=== PATIENT | female | born 1955 ===

== ENCOUNTER → 2019-07-27 | Outpatient (CLI) | payer MEDICARE, OTHER | END | disposition home or self-care (01) | LOC: LAB SHORT 10:25 → LAB 10:25 | PROVIDERS: Hospitalist | DX: Z12.4 Encounter for screening for malignant neoplasm of cervix (principal) | CPT/HCPCS: G0145 ==

== ENCOUNTER 2019-09-24 07:30 | Day surgery (SDC) | payer MEDICARE, OTHER ==
[~2019-09-24] VITALS: Ht 172.7 cm; Wt 82.5 kg
[~2019-09-24 07:30] MED LIST: ATEN25 PO; HYDCHL25 PO; PRAV20 PO
== END 2019-09-24 09:48 | disposition home or self-care (01) ==
LOC: ORSCSDS 07:30
PROVIDERS: Surgery
PROC: 0DJD8ZZ Inspection of Lower Intestinal Tract, Via Natural or Artificial Opening Endoscopic (ICD-10-PCS; principal; 2019-09-24 08:45)
DX: Z12.11 Encounter for screening for malignant neoplasm of colon (principal); K62.1 Rectal polyp; E78.5 Hyperlipidemia, unspecified; I10 Essential (primary) hypertension; Z87.891 Personal history of nicotine dependence; Z79.899 Other long term (current) drug therapy
CPT/HCPCS: 88305; J2704; J7120

== ENCOUNTER → 2024-12-23 | Outpatient (CLI) | payer MEDICARE ==
[2024-12-23 20:19] LABS: Very Low Density Lipoprot Chol 32 mg/dL (6-32)
[2024-12-23 20:20] LABS: Anion Gap 11 mmol/L (3-11); Blood Urea Nitrogen 9 mg/dL (8-24); Bun/Creatinine Ratio 12.1 (12.0-20.0); CHOL/HDL RATIO 3.8; CO2, Blood 27 mmol/L (21-32); Calcium, Blood 9.2 mg/dL (8.5-10.1); Chloride, Blood 107 mmol/L (98-108); Cholesterol 165 mg/dL (50-200); Creatinine, Blood 0.75 mg/dL (0.40-1.00); Glomerular Filtration Rate 85 (60-); Glucose, Blood 103 mg/dL (70-99); HDL Cholesterol 43 mg/dL (>39); LDL/HDL RATIO 2.1; Low Density Lipoprotein Chol 90 mg/dL (0-110); Potassium, Blood 4.3 mmol/L (3.5-5.5); Sodium, Blood 141 mmol/L (136-145); Triglycerides 161 mg/dL (30-160)
== END ==
LOC: LAB SHORT 13:33 → LAB 13:33
PROVIDERS: Hospitalist
DX: I10 Essential (primary) hypertension (principal); E78.5 Hyperlipidemia, unspecified
CPT/HCPCS: 80048; 80061